=== PATIENT | male | born 1975 | race Caucasian/White ===

== ENCOUNTER 2019-11-08 10:42 | Emergency (ER) | payer BC ==
[~2019-11-08] VITALS: Ht 177.8 cm; Wt 90.0 kg
[2019-11-08] MEDS ORDERED: diphenhydrAMINE 25mg capsule PO ONE (11:35)
[2019-11-08] MEDS ORDERED: LORazepam 1 MG tablet PO ONE (11:35)
[2019-11-08 11:59] VITALS: BP 165/77
== END 2019-11-08 12:01 | disposition home or self-care (01) ==
LOC: EEVIPCON 10:43 → ER 10:43
DX: F14.129 Cocaine abuse with intoxication, unspecified (principal); R06.02 Shortness of breath; R20.0 Anesthesia of skin; M79.18 Myalgia, other site; Z72.89 Other problems related to lifestyle
CPT/HCPCS: 99283; Q0163

== ENCOUNTER 2023-07-09 06:19 | Emergency (ER) | payer BC, MEDICAID ==
[~2023-07-09] VITALS: Ht 180.3 cm; Wt 98.0 kg
[2023-07-09 06:20] VITALS: TEMP 98
[2023-07-09] MEDS ORDERED: LORazepam 2 mg/ml vial IM ONE (07:15)
[2023-07-09 07:27] LABS: ALANINE AMINOTRANSFERASE 256 U/L (12-78); ALBUMIN 3.9 G/DL (3.4-5.0); ALBUMIN/GLOBULIN RATIO 1.1 (1.1-1.5); ALKALINE PHOSPHATASE 69 IU/L (46-116); ANION GAP 10 (8-16); ASPARTATE AMINO TRANSFERASE 135 U/L (10-37); BILIRUBIN,TOTAL 0.7 MG/DL (0.1-1.0); BLOOD UREA NITROGEN 8 MG/DL (7-18); CALCIUM 8.6 MG/DL (8.5-10.1); CHLORIDE 96 MMOL/L (99-107); CREATININE 1.14 MG/DL (0.60-1.10); GLUCOSE 130 MG/DL (70-104); POTASSIUM 3.9 MMOL/L (3.5-5.1); SODIUM 133 MMOL/L (135-145); TOTAL CARBON DIOXIDE 27.3 MMOL/L (24-32); TOTAL PROTEIN 7.3 G/DL (6.4-8.2); eCRCL 83 ML/MIN; eGFR 68 ML/MIN
[2023-07-09 07:34] LABS: PRO BRAIN NATRIURETIC PEPTIDE < 30 PG/ML (0-125)
[2023-07-09 07:35] LABS: BASOPHILS % (AUTO) 0.3 % (0-1); EOSINOPHILS # (AUTO) 0.2 X10'3 (0-0.9); EOSINOPHILS % (AUTO) 1.5 % (0-6); HEMATOCRIT 52.2 % (42.0-52.0); HEMOGLOBIN 17.8 g/dl (14.0-17.9); LYMPHOCYTES # (AUTO) 1.1 X10'3 (1.1-4.8); LYMPHOCYTES % (AUTO) 10.4 % (21-51); MEAN CORPUSCULAR HEMOGLOBIN 31.6 PG (27.0-31.0); MEAN CORPUSCULAR HGB CONC 34.1 g/dL (33.0-36.5); MEAN CORPUSCULAR VOLUME 92.6 FL (78-98); MEAN PLATELET VOLUME 6.9 FL (7.4-10.4); MONOCYTES # (AUTO) 1.1 X10'3 (0-0.9); MONOCYTES % (AUTO) 10.4 % (2-12); NEUTROPHILS # (AUTO) 7.9 X10'3 (1.8-7.7); NEUTROPHILS % (AUTO) 77.4 % (42-75); PLATELET COUNT 311 X10'3 (140-440); RED BLOOD COUNT 5.64 X10'6 (4.70-6.10); RED CELL DISTRIBUTION WIDTH 13.7 % (11.5-14.5); WHITE BLOOD COUNT 10.2 X10'3 (4.5-11.0)
[2023-07-09] MEDS ORDERED: HYDR50CA PO (07:41)
[2023-07-09] MEDS ORDERED: cloNIDine 0.1 mg tablet PO ONE ×2 (08:05→08:20)
[2023-07-09 08:50] VITALS: BP 155/100; PULSE 88; RESP 18; O2SAT 100
== END 2023-07-09 08:55 | disposition home or self-care (01) ==
LOC: ER 06:19
DX: F41.9 Anxiety disorder, unspecified (principal)
CPT/HCPCS: 71045; 80053; 83880; 84484; 85025; 93005; 96372; 99285; J2060